=== PATIENT | male | born 1965 | race Caucasian/White ===

== ENCOUNTER 2020-08-14 10:41 | Day surgery (SDC) | payer MEDICARE ==
--- NOTE | 2020-08-14 09:37 | HP ---
DATE OF SURGERY: 08/14/2020 HISTORY OF PRESENT ILLNESS: The patient is a 54 year-old with prior history of cholecystectomy in the past now has incarcerated ventral hernia likely with some preperitoneal or omental fat, some increased discomfort and size in need of repair. PAST MEDICAL HISTORY: PAST SURGICAL HISTORY: Cholecystectomy in the past. Partial removal of left testicle in the past. Colonoscopy 2019. MEDICATIONS: Hydrocodone. Vitamin D. ALLERGIES: NKDA. FAMILY HISTORY: Esophageal cancer in the mother. SOCIAL HISTORY: No smoking or alcohol abuse currently. REVIEW OF SYSTEMS: Fourteen systems reviewed negative or noncontributory as above and per preadmission questionnaire. No chest pain or palpitations currently. Does have chronic aches and pains. PHYSICAL EXAMINATION: GENERAL: No acute distress. HEENT: Sclerae nonicteric. NECK: No JVD. CHEST: Clear to auscultation. CVS: Regular rate and rhythm. ABDOMEN: Soft. No peritoneal signs. He does have right ventral hernia with some incarcerated preperitoneal fat or omentum. EXTREMITIES: No significant edema. NEURO: Alert, oriented, moving extremities symmetrically. PSYCH: Appropriate mood and affect. IMPRESSION: Incarcerated ventral hernia. I feel he would benefit from repair. Discussed options of open versus laparoscopic. I feel laparoscopic best approach. Risks and benefits explained in detail but not limited to bleeding or infection, risk of trocar injury or hernia, risk of bowel, bladder, blood vessel injury, risk of subsequent adhesion, scar formation or obstruction, risk of mesh infection possibly requiring removal, remote risk of mesh fracture or failure possibly creating issue with the viscera or other structures possibly requiring other procedures, ongoing morbidity, risk of hematoma or seroma formation, risk of mesh infection possibly requiring removal, risk of hernia recurrence, general risk of aches, pains, burning, numbness possible shelter or chronic in nature, risk of anesthesia, deep venous thrombosis, pulmonary embolism, pneumonia but not limited to. He understands and agrees to the planned procedure, will proceed with laparoscopic repair of incarcerated ventral hernia with mesh as an outpatient.
[~2020-08-14 10:41] MED LIST: Lactated Ringers 1,000 ML IV ONE; Sensorcaine 0.25% 10 ML ONE
[2020-08-14] MEDS ORDERED: Lactated Ringers 1,000 ML IV ONE (10:53)
[2020-08-14] MEDS ORDERED: CEFAZOLIN 2 GM-D5W BAG** 2 GM/50 ML ML IV ONE (10:53)
[2020-08-14] MEDS ORDERED: Lactated Ringers 1,000 ML IV SCH (11:00)
[2020-08-14] MEDS ORDERED: CEFAZOLIN 2 GM-D5W BAG** 2 GM/50 ML ML IV SCH (11:00)
[2020-08-14] MEDS ORDERED: Zemuron 100 MG/10 ML ONE (14:27)
[2020-08-14] MEDS ORDERED: DIPRIVAN 200 MG/20 ML IV ONE (14:27)
[2020-08-14] MEDS ORDERED: SUBLIMAZE 250 MCG/5 ML ONE (14:28)
[2020-08-14] MEDS ORDERED: Versed 2 MG/2 ML Injection ONE (14:28)
[2020-08-14] MEDS ORDERED: BRIDION 200MG/2ML IV ONE (15:44)
[2020-08-14] MEDS ORDERED: MORPHINE SULFATE 10 MG/ML ONE ×2 (15:45→16:32)
[2020-08-14] MEDS ORDERED: Hydromorphone 1 mg/ml Injection ONE ×2 (16:03→16:12)
[2020-08-14] MEDS ORDERED: SUBLIMAZE 100 MCG/2 ML ONE (16:03)
[2020-08-14] MEDS ORDERED: TRANDATE 100 MG/20 ML MDV FOR DRIP IV ONE (16:23)
[2020-08-14] MEDS ORDERED: APRESOLINE 20 MG/ML INJ ONE (17:00)
[2020-08-14 18:41] VITALS: BP 132/95; PULSE 85; O2SAT 95
[2020-08-14 19:06] LABS: Appearance CLEAR (CLEAR); Bilirubin NEGATIVE (NEGATIVE); Blood MODERATE Ery/ul (0-5); Glucose NEGATIVE (NEGATIVE); Ketones NEGATIVE (NEGATIVE); Leukocyte Esterase NEGATIVE (NEGATIVE); Nitrite NEGATIVE (NEGATIVE); Protein,Urine Dip NEGATIVE (Negative); RBC 51-100 /HPF (0-2); Urobilinogen NEGATIVE mg/dL (0-1)
--- NOTE | 2020-08-15 14:13 | OP ---
SURGERY DATE/TIME: 08/15/2020 1426 PREOPERATIVE DIAGNOSIS: Incarcerated epigastric ventral hernia. POSTOPERATIVE DIAGNOSIS: Incarcerated epigastric ventral hernia. PROCEDURE: Laparoscopic repair of incarcerated epigastric ventral hernia with mesh. SURGEON: Dr. Franklin Call. ANESTHESIA: General. ESTIMATED BLOOD LOSS: Minimal. INDICATIONS: As noted above. Risks and benefits explained in detail and not limited to and consent obtained. DESCRIPTION OF PROCEDURE AND FINDINGS: The patient is taken to the operating room. After official time out and no disagreement with the planned procedure, a transverse incision made epigastrium. Fascia grasped up. Veress needle inserted and tested with saline. Pneumoperitoneum accomplished opening pressure 0 to 15. A 5 mm left upper quadrant bladeless port and camera inserted without difficulty. There was no evidence of any intra-abdominal injury secondary to trocar insertion. A 5 mm left mid abdomen port placed, left lower quadrant 5 mm port and later right mid abdomen 5 mm port placed. The patient had omental adhesions up to the anterior abdominal wall. These were carefully taken down with LigaSure device staying well away from the viscera. He had a large amount of incarcerated omentum up through the lower epigastrium incarcerated ventral hernia. He had a prior incision in this area from prior surgery. This was extending pocket of incarcerated omentum off to the left so the defect is closer to the midline. This took some time this is slowly and carefully reduced out of there. The tip of the omentum was a little stringy. There was question of blood supply at the tip and this elongated piece excised and pulled out through the side port and passed off. Good hemostasis noted. After reducing all of the incarcerated omentum out of the area in the preperitoneal space, falciform of Vater dropped down, dissection carried circumferentially around this area of the preperitoneal space around the defect to allow adequate mesh overlap. Using spinal needle measuring the defect it was felt the size [address] mesh is the most appropriate size mesh to allow for overlap in all directions. A reshma on the skin the pressure turned down to 8 and the four quadrants 0 Ethibond stay sutures were placed in position on the mesh. At this point a small incision placed to allow the mesh to be dropped down over the area in question of the defect this also allowed to #1 PDS sutures to be placed transfascially to bring the fascia back towards the midline. These were just tagged right now with a 12 port placed through the defect and the mesh is dropped down and the port removed. The fascia brought back to the midline with interrupted 0 and #1 PDS. Once this was accomplished again the pressure had been turned down to 8 and 0 Vicryl had been placed in the center of the mesh carefully pulled upward in the midpoint of the defect transfascial closure. The four quadrant 0 Ethibond transfascial sutures carefully pulled up through four separate stab wounds secured and tied. Once this was accomplished capture tacker was placed circumferentially around about 1 cm apart in between the areas where the Ethibond and then pulled up transfascially in a nice tension free flat manner. Again, there had been good overlap. There was no real evidence of any umbilical area hernia but the umbilicus had been overlapped with the mesh to avoid issues with recurrent hernia down there. The mesh is nice and flat in a tension free manner. Again the pressure had been around 8 to avoid distortion of the abdominal wall. At this point good hemostasis is noted. There is no evidence of any other structure issues at this point. Good hemostasis noted. Pneumoperitoneum decompressed. The ports removed. Skin incision closed with 4-0 Vicryl. Steri-Strips and sterile dressings applied. 0.25% Marcaine local had been injected along the skin incision and back towards the fascia laterally on either side. The patient tolerated the procedure well. Findings discussed with the family out in the waiting area. He was given some Steri-Strips, sterile dressing and abdominal binder. He was transferred to the recovery room in stable condition.
== END 2020-08-14 18:52 | disposition home or self-care (01) ==
LOC: SDC 10:41
PROVIDERS: ATTEND Surgery
DX: K43.6 Other and unspecified ventral hernia with obstruction, without gangrene (principal)
CPT/HCPCS: 49653; 81001; 87086; C1781; J0360; J0690; J1170; J2250; J2270; J2704; J3010; L0625

== ENCOUNTER 2021-04-24 19:33 | Emergency (ER) | payer MEDICARE ==
[2021-04-24 19:40] VITALS: BP 159/94; PULSE 107; O2SAT 98
[2021-04-24] MEDS ORDERED: TORAdol 30 mg Injection ONE (20:15)
[2021-04-24] MEDS ORDERED: TORAdol 30 mg Injection IM ONE (20:15)
--- NOTE | 2021-04-24 20:21 | ERPHSYRPT ---
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 Pt able to move it and bend it without diff. No edema or deformity noted. Physician History: 55-year-old male presented in the ER with chief complaint of right elbow pain for last 2 weeks after he was trying to lift a heavy piece of food item at a restaurant after that started to have some dull aching to sharp pain at times with movements without any elbow swelling, numbness tingling distal weakness. Patient takes Mosier on a regular basis which does help with the pain. Wanted to make sure there is no fracture. Did not hear any popping/snapping sound. Occurred: days ago (14) Method of Injury: other Quality: aching, dullness Severity of Pain-Max: moderate Severity of Pain-Current: moderate Extremities Pain Location: forearm: right Modifying Factors: Worsens With: movement Associated Symptoms: none Allergies/Adverse Reactions: No Known Drug Allergies Allergy (Verified 04/24/21 19:46) Hx Tetanus, Diphtheria Vaccination/Date Given: Yes Hx Influenza Vaccination/Date Given: No Hx Pneumococcal Vaccination/Date Given: No Immunizations Up to Date: Yes Travel Risk - International Travel Have you traveled outside of the country in past 3 weeks: No - Coronavirus Screening Are you exhibiting any of the following symptoms?: No Close contact with a COVID-19 positive Pt in past 14-21 Days: No - Vaccine Status Have you recieved a Covid-19 vaccination: Yes 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[employer]: [employer] - Vaccination Dates Date of 2cond Vaccination (if applicable): 09/27/20 - Review of Systems Constitutional: No Symptoms Eyes: No Symptoms Respiratory: No Symptoms Cardiac: No Symptoms Abdominal/Gastrointestinal: No Symptoms Musculoskeletal: Arthralgias, Injury, Joint Pain Skin: No Symptoms Neurological: No Symptoms Psychological: No Symptoms Immunological/Allergic: No Symptoms - Past Medical History Pertinent Past Medical History: Yes Neurological History: No Pertinent History ENT History: No Pertinent History Cardiac History: No Pertinent History Respiratory History: No Pertinent History Endocrine Medical History: No Pertinent History Musculoskeletal History: No Pertinent History GI Medical History: Gallbladder Disease History: No Pertinent History Psycho-Social History: No Pertinent History Male Reproductive Disorders: Other Other Medical History: Snores excessively at night. - Past Surgical History Past Surgical History: Yes Neuro Surgical History: No Pertinent History Cardiac: No Pertinent History Respiratory: No Pertinent History Gastrointestinal: Cholecystectomy Genitourinary: No Pertinent History Musculoskeletal: No Pertinent History Male Surgical History: Testicular Surgery Other Surgical History: Partial removal of left testicle. Colonoscopy 2018 - Social History Smoking Status: Never smoker Exposure to second hand smoke: No Drug Use: none Patient Lives Alone: No - Nursing Vital Signs Nursing Vital Signs: Initial Vital Signs Temperature 98.5 F 04/24/21 19:34 Pulse Rate 107 H 04/24/21 19:34 Respiratory Rate 18 04/24/21 19:34 Blood Pressure 159/94 04/24/21 19:34 O2 Sat by Pulse Oximetry 98 04/24/21 19:34 Pain Scale Pain Intensity 6 - Physical Exam General Appearance: no apparent distress Neck Exam: normal inspection, full range of motion Cardiovascular/Respiratory Exam: normal breath sounds, regular rate/rhythm Back Exam: normal inspection, normal range of motion Shoulder Exam: normal inspection, non-tender, no evidence of injury, normal ROM Elbow/Forearm Exam: normal inspection, no evidence of injury, normal ROM, soft tissue tenderness (Right lateral elbow. No bony tenderness at all.) Hand Exam: normal inspection, non-tender, no evidence of injury, normal ROM Neuro/Tendon Exam: normal sensation Mental Status Exam: alert, oriented x 3, cooperative Skin Exam: normal color SpO2 Interpretation: normal SpO2: 98 O2 Delivery: Room Air Ordered Tests: Active Orders 24 hr Category Date Time Status ELBOW (2 VIEW) Stat Exams 04/24/21 20:02 Taken - Progress Progress: unchanged Progress Note: 04/24/21 20:19 Given Toradol for symptomatic relief. X-rays do not reveal any obvious dislocation reviewed by me with official report pending. Patient was advised to continue with Mosier and will give naproxen to take as needed. Outpatient Ortho follow-up. Recommended avoiding exertional activity until cleared by orthopedic surgery. Counseled pt/family regarding: diagnosis, need for follow-up, rad results - Departure Departure Disposition: Home Clinical Impression: Right elbow pain Condition: Stable Critical Care Time: No Referrals: RAKAN MARINELLI NP [Primary Care Provider] - Follow Up with PCP/3 days ORTHO - RAKAN STUART NP [NON-STAFF PHY W/O PRIVILEGES] - Follow up/PCP as directed (Tomorrow for reevaluation) Instructions: Elbow Sprain (DC) Additional Instructions: Take pain medications as needed. Avoid exertional activities until cleared by orthopedic surgery. Follow-up with orthopedic surgery for reevaluation in 1 to 2 days. Return to ER for worsening pain or difficulty movements etc. Prescriptions: Naproxen 500 mg [Naprosyn 500 MG] 500 mg PO BID #20 tablet
--- NOTE | 2021-04-25 08:50 | XRAY ---
Indication: Pain. No known injury. Comparison: None 2 view right elbow demonstrates tiny spurring lateral epicondyle and olecranon process. No other bony, articular, or soft tissue abnormalities.
== END 2021-04-24 20:34 | disposition home or self-care (01) ==
LOC: ED 19:33
DX: M25.521 Pain in right elbow (principal); X50.0XXA Overexertion from strenuous movement or load, initial encounter; Y92.511 Restaurant or cafe as the place of occurrence of the external cause
CPT/HCPCS: 73070; 96372; 99284; J1885